=== PATIENT | male | born 1975 | race Two or more races ===

== ENCOUNTER 2023-07-23 03:08 | Emergency (ER) | payer OTHER, SELFPAY ==
[2023-07-23] VITALS (12 sets, daily range): BP systolic 91–121; BP diastolic 61–86; PULSE 61–100; BMI 24.1
[2023-07-23 03:26] LABS: % Basophils 0.3 % (0-2); % Eosinophils 1.2 % (0-6); % Immature Granulocytes 0.4 % (0-0.5); % Lymphocytes 17.4 % (20.5-51.1); % Monocytes 3.6 % (1.7-9.3); % Neutrophils 77.1 % (42.2-75.2); Absolute Basophils 0.1 10^3/uL (0-0.2); Absolute Eosinophils 0.2 10^3/uL (0-0.7); Absolute Immature Granulocytes 0.1 10^3/uL (0-0.05); Absolute Lymphocytes 2.5 10^3/uL (1.2-3.4); Absolute Monocytes 0.5 10^3/uL (0.1-0.6); Absolute Neutrophils 11.2 10^3/uL (1.4-6.5); Hemoglobin 15.2 g/dL (13.0-18.0); Mean Corp Hgb Conc. 33.8 g/dL (33.0-37.0); Mean Corpuscular Hgb 28.7 pg (27.0-31.0); Mean Corpuscular Volume 84.9 fL (80.0-94.0); Mean Platelet Volume 8.5 fL (7.4-10.4); Nucleated Red Blood Cells % 0 % (-); Platelet Count 272 10^3/uL (130-400); White Blood Cell Count 14.6 10^3/uL (4.8-10.8)
[2023-07-23] MEDS: NSS 1000 IV ×2 (03:26→04:58)
[2023-07-23 03:40] LABS: ALT (SGPT) 18 U/L (0-50); AST (SGOT) 28 U/L (17-59); Albumin 4.4 g/dl (3.5-5.0); Alkaline Phosphatase 47 U/L (38-126); Blood Urea Nitrogen 21 mg/dl (9-20); Calcium 9.2 mg/dl (8.4-10.2); Carbon Dioxide 25 mmol/L (22-30); Chloride 102 mmol/L (98-107); Estimated Creatinine Clearance 81 ml/min; Glucose 164 mg/dl (70-99); Potassium 4.2 mmol/L (3.5-5.1); Sodium 136 mmol/L (135-145); Total Bilirubin 0.8 mg/dl (0.2-1.3); Total Protein 7.2 g/dl (6.3-8.2); eGFR > 60.00
[2023-07-23 03:50] LABS: Troponin I < 0.012 ng/ml
[2023-07-23 04:18] LABS: TSH Reflex To Free T4 3.85 uIU/ml (0.47-4.68)
--- NOTE | 2023-07-23 04:39 | ED.GENMED ---
History of Present Illness
General
Chief Complaint: Fainting/Passed Out
Source: patient
Exam Limitations: none
Time Seen by Provider: 07/23/23 03:33
Nursing documentation reviewed up to this point in time: agreed with
Travel History
Have you had any contact with someone who has COVID-19?: No
Do you have any symptoms of coronavirus? Fever > 100 degrees, chills, cough, shortness of breath, sore throat, loss of taste or smell, muscle aches, or headache?: No
History of Present Illness
History of Present Illness:
This is a pleasant 47-year-old male that presents to the emergency department via EMS after having a syncopal episode. Patient awakened having nausea lightheadedness and dizziness. Patient states that he has been under a lot of stress lately. He
has been working many hours at his job and got laid off on Wednesday. He reports that he has been having chest pain for the last few weeks. States that he feels very stressed. Does have a history of vertigo. He states that this feels similar.
States that after some fluids he has been feeling better.
Review of Systems
Review of Systems
Allergies reviewed?: Yes
Other source history: family
All Other Systems: ROS reviewed and negative except as documented in HPI and ROS
Constitutional: Reports no symptoms
EENT: Reports no symptoms
Respiratory: Reports no symptoms
Cardiac: Reports no symptoms
ABD/GI: Reports nausea; Denies vomiting
: Reports no symptoms
Musculoskeletal: Reports no symptoms
Skin: Reports no symptoms
Neurological: Reports dizzy, headache and weakness
Endocrine: Reports no symptoms
Hematologic/Lymphatic: Reports no symptoms
Psychiatric: Reports anxiety
Phy Exam
General Physical Exam
General Presentation: well appearing and no apparent distress
General Skin: warm and dry
General Habitus: normal
General Mental: alert
General Hydration: appears well hydrated
ENT Exam
ENT Exam: EOMI, pharynx normal, neck supple and normocephalic
Eye Exam
Eye Exam: PERRL, cornea clear and conjunctiva normal
Cardiovascular Exam
Cardiovascular Exam: regular rate/rhythm, no edema, no murmur and normal peripheral pulses
Pulmonary Exam
Pulmonary Exam: lungs clear, no respiratory distress, no rales, no crackles, no rhonchi, no stridor, no wheezing and no cough
Gastrointestinal Exam
Gastrointestinal Exam: normal bowel sounds, non tender, soft, no organomegaly, no pulsatile mass and non distended
Neurological Exam
Neurological Exam: alert, oriented x3, no motor deficits and speech normal
Musculoskeletal Exam
Musculoskeletal Exam: full ROM and no edema
Skin Exam
Skin Exam: normal color, warm/dry, no rash and no petechia
Psychiatric Exam
Psychiatric Exam: normal mood/affect
Course
Orders/Labs/Results
Orders:
Orders
07/23/23 03:09
Electrocardiogram (*1) Urgent
Reason for Study: Chest Pain
Cardiac Monitoring- Treatment ONCE
EKG- Treatment ONCE
IV Insert/Care/Rem.- Treatment PRN
O2 Therapy [RESP] Urgent
Titrate/Wean O2 to maintain O2 sat greater than (%): 90
Special Instructions: Maintain sats >/=90%
Pulse Ox/spot Check [RESP] Urgent
Quantity: 1
Special Instructions: ON ROOM AIR
07/23/23 03:17
Complete Blood Count/With Diff Urgent
Comprehensive Metabolic Panel Urgent
TSH Reflex To Free T4 Urgent
Troponin I Urgent
07/23/23 03:26
0.9% Sodium Chloride 1000 ml [Nss] 1,000 ml IV BOLUS
07/23/23 04:57
0.9% Sodium Chloride 1000 ml [Nss] 1,000 ml IV BOLUS
07/23/23 05:56
Orthostatic VS- Treatment ONCE
Abnormal Lab Results
07/23/23
03:17
WBC 14.6 H 10^3/uL
(4.8-10.8)
Abs Immat Gran (auto) 0.1 H 10^3/uL
(0-0.05)
Absolute Neuts (auto) 11.2 H 10^3/uL
(1.4-6.5)
Neutrophils % 77.1 H %
(42.2-75.2)
Lymphocytes % 17.4 L %
(20.5-51.1)
BUN 21 H mg/dl
(9-20)
Glucose 164 H mg/dl
(70-99)
07/23/23 03:17
07/23/23 03:17
Vital Signs
Initial and Last Documented VS:
Initial Vital Signs
Temp Pulse Resp BP Pulse Ox
98.4 F 71 16 91/65 99
07/23/23 03:11 07/23/23 03:11 07/23/23 03:11 07/23/23 03:11 07/23/23 03:11
Last Documented Vital Signs
Temp Pulse Resp BP Pulse Ox
98.4 F 83 19 108/72 98
07/23/23 03:11 07/23/23 06:24 07/23/23 06:07 07/23/23 06:24 07/23/23 06:07
*Critical Care Note
Total Time (30-74mins, 75-104mins- exclusive of procedures): Not Applicable
Update Note
Update Note:
07/23/2023 0557 AM back in to see the patient. He received 2 L and he states he is feeling much better. He still has a touch of nausea. Patient will get repeat orthostatics. Discussed imaging with patient. At this point he refuses CT scan. We
did discuss the risks and benefits. He is neurologically intact without any focal deficits.
07/23/2023 0626 AM: Patient feeling much better. He was able to ambulate without assistance. He walked with a steady gait. Denies chest pain headache nausea or vomiting. Patient feels that his symptoms are brought on by his lack of sleep, and his
increased stress over his recent job loss. He states that he was up till 2 in the morning looking for jobs and thinking about his current situation. He denies any suicidal or homicidal ideation, intent, or plan. He does not want to burden his
, who is present at the bedside, with his problems but he realizes that he needs somebody to talk to. At this time he declines crisis intervention. Patient being discharged in much improved condition.
ED Attending Note
-
Portions of this chart may have been created with voice recognition software.� Occasional wrong word or��sound alike� substitutions may have occurred due to the inherent limitations of voice recognition software.
Discharge Plan
Departure
Patient Disposition: Home (Routine Discharge)
Date of Disposition: 07/23/23
Time of Disposition: 06:27
Patient with high blood pressure during this ER visit?: Yes
Condition: Good
Discharge Problem:
Syncope and collapse, Dehydration
Instructions: Syncope (Fainting) (DC), Dehydration, Adult ED
Prescriptions:
No Action
No Current Medications
0
Referrals:
Luis Rocha MD [Family Provider] - Next open appointment
Activity Restrictions/Additional Instructions:
It was a pleasure meeting you and taking part in your care. We hope for your continued healing and wellness.
Please read discharge instructions in their entirety. However, they are for general education and may not describe your exact diagnosis at discharge. Information on your ER visit and medical conditions were discussed with you along with appropriate
follow up information...
If indicated, please take your medications as instructed and indicated on discharge paperwork.
Please schedule a follow up appointment as directed. Call to schedule an appointment
Please return to the emergency department with ANY change in, persisting, or worsening of symptoms. If any of your symptoms do not improve, or persist, or become more severe within 6-12 hours, please return to the emergency department for further
care.
Please return to the emergency department if you develop a headache, neck pain/stiffness, fever greater than 100.4F, chest pain, shortness of breath, persistent nausea, vomiting, slurred speech, difficulty walking, numbness/tingling, weakness, signs
of infection or any other symptoms that are worrisome to you.
If you have any questions or concerns please do not hesitate to call the Hospital at or E-mail me directly at [email or web address]
Interventions
Interventions:
*Risk Screen - Suicide Last Done: 07/23/23 03:11
*General Assessment Last Done: 07/23/23 03:11
*Neglect/Abuse Screening Last Done: 07/23/23 03:11
*ED COVID-19 Vaccine History Last Done: 07/23/23 03:11
*Nursing Disposition Last Done: 07/23/23 06:37
ED- Cardiac Assessment Last Done: 07/23/23 03:11
ED- Neurological Assessment Last Done: 07/23/23 03:17
Discharge Date and Time
Discharge Date/Time: 07/23/23 06:45
Print Language: TELUGU
== END 2023-07-23 06:45 | disposition home or self-care (01) ==
LOC: EMR 03:08
PROVIDERS: EMERGENCY PHYSICIAN Student in an Organized Health Care Education/Training Program; FAMILY PHYSICIAN Family Medicine
DX: R55 Syncope and collapse (principal)
CPT/HCPCS: 99283; 96360; 96361; 80053; 84443; 84484; 85025; 93005; 96374